=== PATIENT | female | born 1980 | race Caucasian/White ===

== ENCOUNTER 2022-02-11 13:02 | Observation (INO) ==
--- NOTE | 2022-02-11 13:25 | ED.PDOC ---
General ED Provider: Dr. ELIANA VALENZUELA MD Chief Complaint: Urinary Problem Stated Complaint: mild to mod burning urination today rad to back, no injury, elevated temperature, +nausea, no hx renal stones, appendectomy, lmp 02/01 Time Seen by Provider: 02/11/22 13:07 Mode of Arrival: Walk-In Information Source: Patient Nursing and Triage Documentation Reviewed and Agree: Yes Does patient meet sepsis criteria?: No System Inflammatory Response Syndrome: Not Applicable Sepsis Protocol: For patient's 13 years and over: Temp is 96.8 and below OR 101 and greater Pulse >90 BPM Resp >20/minute Acutely Altered Mental Status Are patient's symptoms suggestive of a new infection, such as: -Pneumonia -Skin, Soft Tissue -Endocarditis -UTI -Bone, Joint Infection -Implantable Device -Acute Abdominal Infection -Wound Infection -Meningitis -Blood Stream Catheter Infection -Unknown Review of Systems Review Of Systems Constitutional: Reports Malaise Eyes: Denies Vision change Ears, Nose, Mouth, Throat: Denies Throat pain Respiratory: Denies Short of air Cardiac: Denies Chest pain GI: Reports Abdominal pain and Nausea; Denies Vomiting : Reports Burning Musculoskeletal: Reports Back pain Skin: Denies Cyanosis Neurological: Denies Cognitive dysfunction or Headache All Other Systems: Other PFSH Female Reproductive History Menstrual Hx Hysterectomy: No Hx Tubal Ligation: Yes Physical Exam Physical Exam Appearance: Reports No pain distress Ill-appearing: Mild Pain Distress: None Eyes: Reports Conjunctiva clear ENT: Reports Oropharynx normal Neck: Supple Respiratory: Reports Airway patent Cardiovascular: Reports RRR GI/: Reports Soft and Tender (no rebound) Musculoskeletal: Reports ROM intact Skin: Reports Warm and Dry Neurological: Reports Alert and Oriented Psychiatric: Reports Affect appropriate Interpretation Radiology Interpretation Radiology Interpretation By: Radiologist Exam Interpreted: CT Scan Xray Comments: bilateral pyelonephritis Critical Care Note Critical Care Note Total Critical Care Time (mins): 0 Course Course Hematology/Chemistry: 02/11/22 13:29 02/11/22 13:29 Orders, Labs, Meds: Lab Review 02/11/22 02/11/22 02/11/22 13:16 13:16 13:29 WBC 19.04 H RBC 3.86 L Hgb 12.2 Hct 36.6 L MCV 94.8 MCH 31.6 H MCHC 33.3 RDW Coeff of [place] 11.6 Plt Count 379 Immature Gran % (Auto) 0.6 Neut % (Auto) 86.3 H Lymph % (Auto) 4.8 L Esmer[place]da % (Auto) 7.9 Eos % (Auto) 0.2 Baso % (Auto) 0.2 Neut # (Auto) 16.4 H Lymph # (Auto) 0.9 Esmeralda # (Auto) 1.5 Eos # (Auto) 0.0 Baso # (Auto) 0.0 Immature Gran # (Auto) 0.1 Sodium Potassium Chloride Carbon Dioxide Anion Gap BUN Creatinine Estimated GFR (MDRD) BUN/Creatinine Ratio Glucose Lactic Acid Calcium Total Bilirubin AST ALT Alkaline Phosphatase Total Protein Albumin Globulin Albumin/Globulin Ratio Lipase Urine Color Yellow Urine Clarity Clear Urine pH 5.5 Ur Specific [place] 1.010 Urine Protein 1+ H Urine Glucose (UA) 2+ H Urine Ketones Negative Urine Blood Negative Urine Nitrite Negative Urine Bilirubin Negative Urine Urobilinogen 0.2 Ur Leukocyte Esterase Negative Ur Squamous Epith Cells 0-2 Urine Mucus Trace Urine Test Negative 02/11/22 02/11/22 13:29 13:29 WBC RBC Hgb Hct MCV MCH MCHC RDW Coeff of [place] Plt Count Immature Gran % (Auto) Neut % (Auto) Lymph % (Auto) [place]mer[place]da % (Auto) Eos % (Auto) Baso % (Auto) Neut # (Auto) Lymph # (Auto) [place]mer[place]da # (Auto) Eos # (Auto) Baso # (Auto) Immature Gran # (Auto) Sodium 135.7 Potassium 3.13 L Chloride 100.9 Carbon Dioxide 25.5 Anion Gap 12.43 BUN 6.8 L Creatinine 0.92 Estimated GFR (MDRD) 68.00 BUN/Creatinine Ratio 7.39 Glucose 142.7 H Lactic Acid 1.04 Calcium 8.55 Total Bilirubin 0.59 AST 37.0 H ALT 14.4 Alkaline Phosphatase 111.2 Total Protein 7.23 Albumin 3.58 Globulin 3.65 Albumin/Globulin Ratio 0.98 Lipase 31.7 Urine Color Urine Clarity Urine pH Ur Specific [place] Urine Protein Urine Glucose (UA) Urine Ketones Urine Blood Urine Nitrite Urine Bilirubin Urine Urobilinogen Ur Leukocyte Esterase Ur Squamous Epith Cells Urine Mucus Urine Test Orders Category Date Time Status CBC W/ AUTO DIFF Stat LAB 02/11/22 13:29 Completed CMP [COMPREHENSIVE METABOLIC PANEL] Stat LAB 02/11/22 13:29 Completed LACTIC ACID Stat LAB 02/11/22 13:29 Completed LIPASE Stat LAB 02/11/22 13:29 Completed URINALYSIS C & S IF INDICATED Stat LAB 02/11/22 13:16 Completed URINE Stat LAB 02/11/22 13:16 Completed Levofloxacin/D5w [Levaquin 500 mg/100 ml D5w] MEDS 02/11/22 14:34 Active 500 mg in 100 ml IV ONCE Sodium Chloride 0.9% [Sodium Chloride] 1,000 ml MEDS 02/11/22 14:[address] ABDOMEN/PELVIS WO CONTRAST Stat RADS 02/11/22 13:44 Completed Medications Generic Name Dose Route Start Last Admin Trade Name Freq PRN Reason Stop Dose Admin Sodium Chloride 1,000 mls @ 1,000 mls/hr 02/11/22 14:34 Sodium Chloride IV 02/11/22 15:33 BOLUS STA Levofloxacin/Dextrose 500 mg in 100 mls @ 100 mls/hr 02/11/22 14:34 Levaquin 500 Mg/100 Ml D5w IV 02/11/22 15:33 ONCE ONE Vital Signs: Temp Pulse Resp BP Pulse Ox 02/11/22 13:06 100.9 F H 118 H 18 140/82 97 Discharge Plan Discharge Patient Disposition: PLACED OBSERVATION Discharge Problem: Pyelonephritis Prescriptions: No Action No Reported Medications 0 Qty: 0 Did you review [place] TESTING ENGINEER?: Not Applicable ED Provider: ELIANA VALENZUELA Condition: Stable Physician Progress Note: []hospitalist obs admit for lv levaquin
[2022-02-11 13:34] LABS: BASOPHILS % (AUTO) 0.2 % (0.0-3.0); EOSINOPHILS % (AUTO) 0.2 % (0.0-7.0); HEMATOCRIT 36.6 % (37.0-47.0); HEMOGLOBIN 12.2 g/dl (12.0-16.0); IMMATURE GRANULOCYTE # (AUTO) 0.1 (0.0-1.0); IMMATURE GRANULOCYTE % (AUTO) 0.6 % (0.0-5.0); LYMPHOCYTES # (AUTO) 0.9 K/uL (0.60-3.4); LYMPHOCYTES % (AUTO) 4.8 (10.0-50.0); MEAN CORPUSCULAR HEMOGLOBIN 31.6 pg (27.0-31.0); MEAN CORPUSCULAR HGB CONC 33.3 (31.8-35.4); MEAN CORPUSCULAR VOLUME 94.8 fl (81.0-99.0); MONOCYTES # (AUTO) 1.5 K/uL (0.4-2.0); MONOCYTES % (AUTO) 7.9 (0-10); NEUTROPHILS # (AUTO) 16.4 K/ul (2.0-6.9); NEUTROPHILS % (AUTO) 86.3 % (42.2-75.2); PLATELET COUNT 379 10^3/uL (140-440); RDW COEFFICIENT OF VARIATION 11.6 % (11.6-14.8); RED BLOOD COUNT 3.86 10^6/ul (4.20-5.40); WHITE BLOOD COUNT 19.04 K/ul (4.6-10.2)
[2022-02-11 13:41] LABS: URINE PREGNANCY TEST NEGATIVE (NEGATIVE)
[2022-02-11 13:45] LABS: BILIRUBIN,URINE Negative (NEGATIVE); CLARITY,URINE Clear (CLEAR); COLOR,URINE Yellow (YELLOW); GLUCOSE, URINE (UA) 2+ (NEGATIVE); KETONES,URINE Negative (NEGATIVE); LEUKOCYTE ESTERASE ,URINE Negative (NEGATIVE); NITRITE,URINE Negative (NEGATIVE); PH,URINE 5.5 (5-9); PROTEIN,URINE 1+ (NEGATIVE); URINE, BLOOD Negative (NEGATIVE); UROBILINOGEN,URINE 0.2 (0.2)
[2022-02-11 13:46] LABS: MUCUS,URINE TRACE (NOT PRESENT); SQUAMOUS EPITHELIAL CELL,UR 0-2 (0-5)
[2022-02-11 13:47] LABS: ALANINE AMINOTRANSFERASE 14.4 U/L (0-35); ALBUMIN 3.58 g/dL (3.5-5.0); ALKALINE PHOSPHATASE 111.2 U/L (38-126); BILIRUBIN,TOTAL 0.59 mg/dL (0.2-1.3); BLOOD UREA NITROGEN 6.8 mg/dL (7-17); CALCIUM 8.55 mg/dL (8.4-10.2); CARBON DIOXIDE 25.5 mmol/L (22-30.0); CHLORIDE 100.9 mmol/L (98-107); CREATININE 0.92 mg/dL (0.60-1.30); GLUCOSE 142.7 mg/dL (74-106); LIPASE 31.7 U/L (23-300); POTASSIUM 3.13 mmol/L (3.5-5.1); SODIUM 135.7 mmol/L (134.5-145); TOTAL PROTEIN 7.23 g/dL (6.3-8.2)
--- NOTE | 2022-02-11 14:25 | CT ---
EXAM: CT Abdomen without contrast. CT Pelvis without contrast. HISTORY: Abdominal pain. COMPARISON: None. TECHNIQUE: Multiple axial images of the abdomen and pelvis were obtained without intravenous contras t. Images were reformatted in the sagittal and coronal plane. FINDINGS: Please note that evaluation of the abdominal and pelvic structures is limited due to lack of intravenous contrast. Dependent atelectasis both lower lobes along with trace amount of pleural fluid bilaterally. Degenerative changes in the spine. Liver, gallbladder, pancreas, spleen, and adrenal glands are unremarkable. Right greater than left renal pelviectasis and urothelial thickening with associated perinephric stra nding. No hydroureter. No calcified renal or ureteral stones. Bladder wall mildly thickened. Small hiatal hernia. There is no bowel obstruction or acute inflammation. Appendix normal. Uterus demonstrates normal contour. No free air. Small fatty umbilical hernia. Aorta normal in viky iber. IMPRESSION: Findings most suggestive of bilateral pyelonephritis and cystitis. All CT scans are performed using dose optimization techniques as appropriate to the performed exam an d include at least one of the following: Automated exposure control, adjustment of the mA and/or kV according t o size, and the use of iterative reconstruction technique.
[2022-02-11] MEDS ORDERED: LEVAQUIN 500 MG/100 ML D5W 500 MG/100 ML BAG IV ONE (14:34)
[2022-02-11] MEDS ORDERED: SODIUM CHLORIDE 1,000 ML IV STA (14:34)
[2022-02-11] MEDS ORDERED: MORPHINE 2 MG/ML SYRINGE IVP ONE (14:56)
[2022-02-11] MEDS: LEVAQUIN 750 MG/150 ML D5W 750 MG/150 ML BAG IV SCH (15:07)
[2022-02-11] MEDS: SODIUM CHLORIDE 1,000 ML IV SCH ×2 (15:47→20:30)
[2022-02-11 16:09] VITALS: BMI 31.7
[2022-02-11] MEDS ORDERED: ZOFRAN 4 MG/2 ML IVP PRN (18:02)
[2022-02-11] MEDS: TYLENOL PO PRN (18:36)
[2022-02-11] MEDS: MORPHINE 2 MG/ML SYRINGE IVP PRN (19:28)
[2022-02-11] MEDS: ROCEPHIN 1 GM/50 ML D5W 1 GM/50 ML BAG IV SCH (21:47)
[2022-02-12] MEDS: TYLENOL PO PRN ×2 (00:52→05:28)
[2022-02-12] MEDS: MORPHINE 2 MG/ML SYRINGE IVP PRN (01:31)
[2022-02-12 05:41] LABS: BASOPHILS % (AUTO) 0.2 % (0.0-3.0); EOSINOPHILS % (AUTO) 0.2 % (0.0-7.0); HEMATOCRIT 33.4 % (37.0-47.0); IMMATURE GRANULOCYTE # (AUTO) 0.1 (0.0-1.0); IMMATURE GRANULOCYTE % (AUTO) 0.5 % (0.0-5.0); LYMPHOCYTES % (AUTO) 7.6 (10.0-50.0); MEAN CORPUSCULAR HEMOGLOBIN 31.8 pg (27.0-31.0); MEAN CORPUSCULAR HGB CONC 32.9 (31.8-35.4); MEAN CORPUSCULAR VOLUME 96.5 fl (81.0-99.0); MONOCYTES # (AUTO) 1.1 K/uL (0.4-2.0); MONOCYTES % (AUTO) 7.9 (0-10); NEUTROPHILS # (AUTO) 11.4 K/ul (2.0-6.9); NEUTROPHILS % (AUTO) 83.6 % (42.2-75.2); PLATELET COUNT 332 10^3/uL (140-440); RDW COEFFICIENT OF VARIATION 11.6 % (11.6-14.8); RED BLOOD COUNT 3.46 10^6/ul (4.20-5.40)
[2022-02-12 05:58] LABS: ALANINE AMINOTRANSFERASE 14.9 U/L (0-35); ALBUMIN 3.04 g/dL (3.5-5.0); ALKALINE PHOSPHATASE 98.9 U/L (38-126); ASPARTATE AMINO TRANSFERASE 46.5 U/L (14-36); BILIRUBIN,TOTAL 0.51 mg/dL (0.2-1.3); BLOOD UREA NITROGEN 3.8 mg/dL (7-17); CALCIUM 8.17 mg/dL (8.4-10.2); CARBON DIOXIDE 27.4 mmol/L (22-30.0); CHLORIDE 104.2 mmol/L (98-107); CREATININE 0.91 mg/dL (0.60-1.30); GLUCOSE 124.3 mg/dL (74-106); POTASSIUM 3.04 mmol/L (3.5-5.1); SODIUM 137.7 mmol/L (134.5-145); TOTAL PROTEIN 6.27 g/dL (6.3-8.2)
[2022-02-12] MEDS ORDERED: K-DUR PO ONE (06:30)
[2022-02-12] MEDS: SODIUM CHLORIDE 1,000 ML IV SCH (06:54)
[2022-02-12] MEDS: TORADOL IVP SCH ×2 (07:38→13:28)
[2022-02-12] MEDS: ROCEPHIN 1 GM/50 ML D5W 1 GM/50 ML BAG IV SCH (08:03)
[2022-02-12] MEDS: LEVAQUIN 750 MG/150 ML D5W 750 MG/150 ML BAG IV SCH (09:18)
[2022-02-12] MEDS: K-DUR PO SCH ×2 (10:24→12:55)
[2022-02-12] MEDS ORDERED: TORADOL IVP SCH (12:00)
[2022-02-12] MEDS ORDERED: ROCEPHIN 1 GM/50 ML D5W 1 GM/50 ML BAG IV ONE (13:43)
[2022-02-12 13:51] VITALS: BP 130/85; TEMP 97.9
--- NOTE | 2022-02-12 14:30 | PCM.DC ---
Final Diagnosis: Pyelonephritis, bilateral. Date of admit - 02/11/22 Date of discharge - 02/12/22 Physical Exam Appearance: Well-appearing Ill-appearing: None Pain Distress: None Eyes: LINDA ENT: Oropharynx normal Neck: Supple Respiratory: Airway patent and Breath sounds clear Cardiovascular: RRR and Pulses normal GI/: Soft and Nontender Musculoskeletal: Normal strength, ROM intact and Other (bilateral CVAT , mild) Skin: Warm and Dry Neurological: Sensation intact, Motor intact and Alert Psychiatric: Affect appropriate and Mood appropriate (1) Pyelonephritis: Status: Acute Code(s): N12 - Tubulo-interstitial nephritis, not specified as acute or chronic SNOMED Code(s): 35628876 Reason for Hospitalization: Admit with acute bilateral pyelonephritis, no sepsis. Some nausea and vomiting. Prognosis/Condition at Discharge: Good. Stable. Medications at Discharge: Medications at Discharge (Home Meds & RX) cefuroxime axetil 500 mg tablet 500 mg PO BID For UTI 7 days #14 tabs 02/12/22 ketorolac 10 mg tablet 10 mg PO Q6H for pain 5 days #20 tabs 02/12/22 levofloxacin 500 mg tablet 500 mg PO DAILY #7 tabs 02/12/22 ondansetron 4 mg disintegrating tablet 4 mg PO Q6H PRN nausea and vomiting #20 tabs 02/12/22 Lab/Diagnostics: Laboratory Tests 02/11/22 02/11/22 02/11/22 13:16 13:16 13:29 WBC 19.04 H RBC 3.86 L Hgb 12.2 Hct 36.6 L MCV 94.8 MCH 31.6 H MCHC 33.3 RDW Coeff of [place] 11.6 Plt Count 379 Immature Gran % (Auto) 0.6 Neut % (Auto) 86.3 H Lymph % (Auto) 4.8 L [place] % (Auto) 7.9 Eos % (Auto) 0.2 Baso % (Auto) 0.2 Neut # (Auto) 16.4 H Lymph # (Auto) 0.9 [place] # (Auto) 1.5 Eos # (Auto) 0.0 Baso # (Auto) 0.0 Immature Gran # (Auto) 0.1 Sodium Potassium Chloride Carbon Dioxide Anion Gap BUN Creatinine Estimated GFR (MDRD) BUN/Creatinine Ratio Glucose Lactic Acid Calcium Total Bilirubin AST ALT Alkaline Phosphatase Total Protein Albumin Globulin Albumin/Globulin Ratio Lipase Urine Color Yellow Urine Clarity Clear Urine pH 5.5 Ur Specific [place] 1.010 Urine Protein 1+ H Urine Glucose (UA) 2+ H Urine Ketones Negative Urine Blood Negative Urine Nitrite Negative Urine Bilirubin Negative Urine Urobilinogen 0.2 Ur Leukocyte Esterase Negative Ur Squamous Epith Cells 0-2 Urine Mucus Trace Urine Test Negative SARS CoV-2 RNA Rapid YADIRA 02/11/22 02/11/22 02/11/22 13:29 13:29 14:47 WBC RBC Hgb Hct MCV MCH MCHC RDW Coeff of [place] Plt Count Immature Gran % (Auto) Neut % (Auto) Lymph % (Auto) [place] % (Auto) Eos % (Auto) Baso % (Auto) Neut # (Auto) Lymph # (Auto) [place] # (Auto) Eos # (Auto) Baso # (Auto) Immature Gran # (Auto) Sodium 135.7 Potassium 3.13 L Chloride 100.9 Carbon Dioxide 25.5 Anion Gap 12.43 BUN 6.8 L Creatinine 0.92 Estimated GFR (MDRD) 68.00 BUN/Creatinine Ratio 7.39 Glucose 142.7 H Lactic Acid 1.04 Calcium 8.55 Total Bilirubin 0.59 AST 37.0 H ALT 14.4 Alkaline Phosphatase 111.2 Total Protein 7.23 Albumin 3.58 Globulin 3.65 Albumin/Globulin Ratio 0.98 Lipase 31.7 Urine Color Urine Clarity Urine pH Ur Specific [place] Urine Protein Urine Glucose (UA) Urine Ketones Urine Blood Urine Nitrite Urine Bilirubin Urine Urobilinogen Ur Leukocyte Esterase Ur Squamous Epith Cells Urine Mucus Urine Test SARS CoV-2 RNA Rapid YADIRA Negative 02/12/22 02/12/22 05:00 05:00 WBC 13.60 H D RBC 3.46 L Hgb 11.0 L Hct 33.4 L MCV 96.5 MCH 31.8 H MCHC 32.9 RDW Coeff of [place] 11.6 Plt Count 332 Immature Gran % (Auto) 0.5 Neut % (Auto) 83.6 H Lymph % (Auto) 7.6 L [place] % (Auto) 7.9 Eos % (Auto) 0.2 Baso % (Auto) 0.2 Neut # (Auto) 11.4 H Lymph # (Auto) 1.0 [place] # (Auto) 1.1 Eos # (Auto) 0.0 Baso # (Auto) 0.0 Immature Gran # (Auto) 0.1 Sodium 137.7 Potassium 3.04 L Chloride 104.2 Carbon Dioxide 27.4 Anion Gap 9.14 BUN 3.8 L Creatinine 0.91 Estimated GFR (MDRD) 69.00 BUN/Creatinine Ratio 4.17 Glucose 124.3 H Lactic Acid Calcium 8.17 L Total Bilirubin 0.51 AST 46.5 H ALT 14.9 Alkaline Phosphatase 98.9 Total Protein 6.27 L Albumin 3.04 L Globulin 3.23 Albumin/Globulin Ratio 0.94 Lipase Urine Color Urine Clarity Urine pH Ur Specific [place] Urine Protein Urine Glucose (UA) Urine Ketones Urine Blood Urine Nitrite Urine Bilirubin Urine Urobilinogen Ur Leukocyte Esterase Ur Squamous Epith Cells Urine Mucus Urine Test SARS CoV-2 RNA Rapid YADIRA EXAM: CT Abdomen without contrast. CT Pelvis without contrast. HISTORY: Abdominal pain. COMPARISON: None. TECHNIQUE: Multiple axial images of the abdomen and pelvis were obtained without intravenous contrast. Images were reformatted in the sagittal and coronal plane. FINDINGS: Please note that evaluation of the abdominal and pelvic structures is limited due to lack of intravenous contrast. Dependent atelectasis both lower lobes along with trace amount of pleural fluid bilaterally. Degenerative changes in the spine. Liver, gallbladder, pancreas, spleen, and adrenal glands are unremarkable. Right greater than left renal pelviectasis and urothelial thickening with associated perinephric stranding. No hydroureter. No calcified renal or ureteral stones. Bladder wall mildly thickened. Small hiatal hernia. There is no bowel obstruction or acute inflammation. Appendix normal. Uterus demonstrates normal contour. No free air. Small fatty umbilical hernia. Aorta normal in caliber. IMPRESSION: Findings most suggestive of bilateral pyelonephritis and cystitis. Education Provided to Patient and Family: Kidney infection Follow-ups: PCP in 2 days, culture should be back by then. Discharge Disposition: Home Hospital Course: Admit with bilateral pyelonephritis, no sepsis. Tx with IV levaquin and rocephin. Rapid improvement, she asked to be d/c after one day. WBC better, afeb, not vomiting. Since culture not back yet, will Rx levaquin and ceftin, F/U with PCP. Transient hypokalemia from GI loss is corrected, although did not want to wait for repeat labs. Plan: Rx levaquin 500 mg daily, ceftin 500 mg bid, both for one week. Rx toradol and zofran for prn use. F/U with PCP 2 day, will need repeats tests done. Total time spent in [id number] discharge exam and documentation is 40 minutes.
== END 2022-02-12 15:00 | disposition home or self-care (01) ==
LOC: ED 13:02 → MEDSURG A 13:02
PROVIDERS: ADMIT Emergency Medicine Emergency Medical Services; ATTEND Emergency Medicine
DX: Z20.822 Contact with and (suspected) exposure to COVID-19; Z03.89 Encounter for observation for other suspected diseases and conditions ruled out; E87.6 Hypokalemia; N12 Tubulo-interstitial nephritis, not specified as acute or chronic; M54.50 Low back pain, unspecified; R10.9 Unspecified abdominal pain